=== PATIENT | female | born 1980 | race Hispanic/Latino ===

== ENCOUNTER 2018-10-14 06:02 | Day surgery (SDC) | payer BC ==
[~2018-10-14] VITALS: Ht 175.3 cm; Wt 121.6 kg
--- NOTE | ~2018-10-14 | OR ---
[facility] [address] [place], [place] [address] [place] DATE OF OPERATION: 10/14/2018 SURGEON: Fauzia Benitez MD PREOPERATIVE DIAGNOSES: Menometrorrhagia with irregular cycles, uterine fibroids, morbid obesity. POSTOPERATIVE DIAGNOSES: Menometrorrhagia with irregular cycles, uterine fibroids, morbid obesity, pending pathology. PROCEDURE: Hysteroscopy, D and C. ANESTHESIA: General LMA. ESTIMATED BLOOD LOSS: 10 mL. DRAINS: None. INDICATIONS AND FINDINGS: The patient is a 38-year-old female, 1, para 1, who has been having abnormal bleeding over the last several years. Ultrasound reveals multiple fibroids, but the endometrial cavity could not be assessed. EMB was insufficient. At the time of surgery, exam under anesthesia revealed an enlarged uterus that was difficult to outline secondary to her obesity. The cavity sounded to 11 cm. The cavity was irregular, but the upper aspect could not be assessed as the instrument was not long enough to see the upper aspect. DESCRIPTION OF PROCEDURE: The patient was prepped and draped in the dorsal lithotomy position. The [place] speculum was used on the posterior cul-de-sac and the anterior lip of the cervix was visualized and grasped with a single-tooth tenaculum. The cavity was sounded to 11 cm. The endocervical canal was then dilated to a #9 dilator. The MyoSure device was then placed and the cavity evaluated, but the upper reaches of the cavity could not be evaluated as the light cord was keeping the instrument from being inserted any further. Because of this, the hysteroscopy was discontinued and D and C was done with removal of PATIENT NAME: ANN MARIE BARRY OPERATIVE REPORT DATE OF : 82 REPORT #: [id number] PHYSICIAN: FAUZIA BENITEZ MD PCP: NO PRIMARY CARE PHYSICIAN REPORT IS CONFIDENTIAL AND NOT TO BE RELEASED WITHOUT AUTHORIZATION [facility] [address] [place], [place] [address] Draft a moderate amount of tissue. The procedure was then terminated. The tenaculum was removed. There was no evidence of any bleeding from the tenaculum site. The weighted speculum was removed and the patient was taken to the recovery room in good condition. Fauzia Benitez MD PJW/MODL /[id number] Copies: ~ PATIENT NAME: ANN MARIE BARRY OPERATIVE REPORT DATE OF : 82 REPORT #: [id number] PHYSICIAN: FAUZIA BENITEZ MD PCP: NO PRIMARY CARE PHYSICIAN REPORT IS CONFIDENTIAL AND NOT TO BE RELEASED WITHOUT AUTHORIZATION
[~2018-10-14 06:02] MED LIST: DAILY MULTIPLE1 EACH PO
--- NOTE | 2018-10-14 08:53 | NUR ---
10/14/18 0853 Coreen Rebollar SN 0849- PT ARRVIES IN PACU. OPA IN PLACE. PT UNAROUSABLE TO VERBAL AND TACTILE STIMULI. RESPS EVEN AND UNLABOERD, 02 SAT HIGH 90S ON 8L VIA MASK. PT UNABLE TO REPORT NAUSE DIZZINESS, OR PAIN AT THIS TIME.
--- NOTE | 2018-10-14 09:37 | NUR ---
PT BACK TO DS ROOM 4 FROM PACU. REPORT FROM EXHAUSTER ENGINEER TO CRISTINA SURESH. CALL LIGHT WITHIN REACH
[2018-10-14] MEDS ORDERED: MOTRIN IB200 MG PO (09:48)
[2018-10-14] MEDS ORDERED: NORCO 5-325 TA1 EACH PO (09:49)
--- NOTE | 2018-10-14 10:28 | NUR ---
states her ride is coming. denies need to void.
--- NOTE | 2018-10-14 11:49 | NUR ---
PT REQUESTS TO USE BATHROOM. PT TOLERATES AMBULATION TO RESTROOM AND VOIDS 600 ML LIGHT BLOOD TINGED URINE WITHOUT DIFFICULTY. PT PROVIDED WITH MESH UNDIES AND A OTIS PAD. PT BACK TO ROOM. DC CRITERIA MET. VSS. PT DENIES PAIN/NAUSEA. IV DC'D WNL. DC INSTRUCTIONS WITH PRECAUTIONS PROVIDED. PT VERBALIZES UNDERSTANDING AND DENIES FURTHER QUESTIONS. PRESCRIPTION WITH EDUCATION GIVEN. PT TRANSPORTED IN WHEEL CHAIR TO VEHICLE DRIVEN BY BROTHER. PT IN STABLE CONDITION
== END 2018-10-14 11:45 | disposition home or self-care (01) ==
LOC: OPS 06:02 → DS 06:02 → OPS 08:15
PROVIDERS: Obstetrics & Gynecology
PROC: 0UJD8ZZ Inspection of Uterus and Cervix, Via Natural or Artificial Opening Endoscopic (ICD-10-PCS; 2018-10-14)
PROC: 0UDB7ZX Extraction of Endometrium, Via Natural or Artificial Opening, Diagnostic (ICD-10-PCS; principal; 2018-10-14 08:15)
DX: N84.0 Polyp of corpus uteri (principal); D25.1 Intramural leiomyoma of uterus; N92.1 Excessive and frequent menstruation with irregular cycle; K21.9 Gastro-esophageal reflux disease without esophagitis; E66.01 Morbid (severe) obesity due to excess calories; Z79.899 Other long term (current) drug therapy; Z68.39 Body mass index [BMI] 39.0-39.9, adult
CPT/HCPCS: 00952; 80053; 82627; 83525; 84146; 84270; 84403; 84443; 84703; 85025; J1100; J1885; J2704; J2765; J3010; J7120